=== PATIENT | male | born 1980 | race Caucasian/White ===

== ENCOUNTER 2021-12-28 11:26 | Emergency (ER) | payer OTHER ==
[~2021-12-28] VITALS: Ht 177.8 cm; Wt 83.9 kg
--- NOTE | 2021-12-28 11:31 | NUR ---
BIB [employer] WITH LEFT FOREARM OPEN WOUND. VITALS ARE WITHIN NORMAL LIMITS. BREATHING EVN AND UNLABORED. DR ZURITA AT BEDSIDE
--- NOTE | 2021-12-28 11:40 | NUR ---
Jordana storey in [facility] - 12/28/21 at 1140 by EMMA Patient discharged to home in stable condition. Written and verbal after care instructions given. Patient verbalizes understanding of instruction.
--- NOTE | 2021-12-28 11:40 | NUR ---
Patient discharged to home in stable condition. Written and verbal after care instructions given. Patient verbalizes understanding of instruction.
[2021-12-28 11:43] VITALS: BP 131/61
== END 2021-12-28 11:43 ==
LOC: ER 11:32
DX: Z02.89 Encounter for other administrative examinations (principal); I10 Essential (primary) hypertension; J45.909 Unspecified asthma, uncomplicated; F17.200 Nicotine dependence, unspecified, uncomplicated